=== PATIENT | female | born 1975 ===

== ENCOUNTER 2022-04-20 07:26 | Day surgery (SDC) | payer OTHER ==
[~2022-04-20] VITALS: Ht 154.9 cm; Wt 54.9 kg
== END 2022-04-20 14:00 | disposition home or self-care (01) ==
LOC: CIR.AMB 07:26
PROVIDERS: ATTEND Obstetrics & Gynecology
DX: N93.8 Other specified abnormal uterine and vaginal bleeding (principal); N85.02 Endometrial intraepithelial neoplasia [EIN]; Z20.822 Contact with and (suspected) exposure to COVID-19

== ENCOUNTER 2022-05-27 09:13 | Outpatient (CLI) | payer OTHER | END 2022-05-27 09:18 | disposition home or self-care (01) | LOC: LAB 09:13 | PROVIDERS: ATTEND Obstetrics & Gynecology Gynecologic Oncology | DX: R97.1 Elevated cancer antigen 125 [CA 125] (principal); R97.8 Other abnormal tumor markers ==

== ENCOUNTER 2022-05-30 08:06 | Outpatient (CLI) | payer OTHER | END 2022-05-30 08:14 | disposition home or self-care (01) | LOC: MRI 08:06 | PROVIDERS: ATTEND Obstetrics & Gynecology Gynecologic Oncology | DX: N85.02 Endometrial intraepithelial neoplasia [EIN] (principal) | CPT/HCPCS: 72197; Q9965 ==

== ENCOUNTER 2022-07-10 07:30 | Inpatient (IN) | payer OTHER ==
[~2022-07-10] VITALS: Ht 154.9 cm; Wt 55.3 kg
[2022-07-13] MEDS ORDERED: MEGESTROL ACETA40 MG (10:15)
== END 2022-07-14 14:41 | disposition home or self-care (01) | DRG 743 ==
LOC: OB/GYN 07-13 06:14 → O/R 07-13 06:14 → SURG 07-13 07:00 → OB/GYN 07-13 16:48
PROVIDERS: ADMIT Obstetrics & Gynecology Gynecologic Oncology; ATTEND Obstetrics & Gynecology Gynecologic Oncology
PROC: 07BC4ZZ Excision of Pelvis Lymphatic, Percutaneous Endoscopic Approach (ICD-10-PCS; 2022-07-13)
PROC: 0UT94ZZ Resection of Uterus, Percutaneous Endoscopic Approach (ICD-10-PCS; principal; 2022-07-13 10:35)
DX: N85.02 Endometrial intraepithelial neoplasia [EIN] (principal); N72 Inflammatory disease of cervix uteri; Z20.822 Contact with and (suspected) exposure to COVID-19